=== PATIENT | female | born 1990 | race Two or more races ===

== ENCOUNTER 2016-09-26 08:41 | Emergency (ER) | payer MEDICAID, OTHER ==
[2016-09-26 08:49] VITALS: BMI 30.2
[2016-09-26 08:50] VITALS: TEMP 97.7
[2016-09-26 09:27] LABS: RBC URINE 1 /hpf (0-3); URINE BILIRUBIN NEGATIVE (NEGATIVE); URINE BLOOD NEGATIVE (NEGATIVE); URINE COLOR Yellow (YELLOW); URINE GLUCOSE (UA) NORMAL (Normal); URINE KETONE NEGATIVE (NEGATIVE); URINE LEUKOCYTE ESTERASE TRACE Leu/uL (Negative); URINE PROTEIN NEGATIVE (NEGATIVE); URINE UROBILINOGEN NORMAL mg/dL (0.2-1.0); WBC URINE 9 /hpf (0-5)
--- NOTE | 2016-09-26 09:51 | C.PDOC ---
History Of Present Illness 25 yr old female presents to the ER with complaints of dysuria for the past 4 days. Patient reports of bladder spasm and radiation of pain to bilateral lower back. Reports of fever and chills, states took 2 doses of penicillin 4 days ago and occasional nausea. Patient denies fever, chills, chest pain, SOB, vomiting, abdominal pain, diarrhea, incontinence, weakness or numbness. Patient also notes of foul smell discharge for the past 2 days. Patient states she is concerned for an STD due to unprotected sex. Patient denies rash. States she is pending insurance for OBGYN. DYSURIA X 4 DAYS. BLADDER SPASM, RADIATION B/L LOWER BACK. SUBJ FEVER, CHILLS. PS TOOK PCN X 2 DOSES 4 DAYS AGO. OCC NAUSEA. NO OTHER ASSOC SX. ALSO CO FOUL SMELLING DC X 2 DAYS. PS CONCERN FOR STD. +UNPROT SEX. NO RASH PENDING INSURANCE FOR OBGYN EXAM ABD NEG NO RASH, NO YELLOW DC. NEG MDM ADVISED SAFE SEX PRACTICES, REFERRED STD AND REG CLINIC Time Seen by Provider: 09/26/16 08:42 Chief Complaint (Nursing): Female Genitourinary History Per: Patient History/Exam Limitations: no limitations Onset/Duration Of Symptoms: Days (4) Associated Symptoms: Nausea Past Medical History Reviewed: Historical Data, Nursing Documentation, Vital Signs Vital Signs: Last Vital Signs Temp 97.7 F 09/26/16 08:49 Pulse 72 09/26/16 08:49 Resp 20 09/26/16 08:49 BP 104/70 09/26/16 08:49 Pulse Ox 100 09/26/16 10:35 Surgical History: Appendectomy Family History: States: No Known Family Hx - Social History Hx Alcohol Use: Yes Hx Substance Use: No - Immunization History Hx Tetanus Toxoid Vaccination: Yes Hx Influenza Vaccination: Yes Hx Pneumococcal Vaccination: No Review Of Systems Except As Marked, All Systems Reviewed And Found Negative. Constitutional: Negative for: Fever, Chills Cardiovascular: Negative for: Chest Pain Respiratory: Negative for: Shortness of Breath Gastrointestinal: Positive for: Nausea (occasional). Negative for: Vomiting, Abdominal Pain, Diarrhea Genitourinary: Positive for: Dysuria, Vaginal Discharge (Foul smelling discharge. ), Other ((+) Bladder spasm ). Negative for: Incontinence, Rash Musculoskeletal: Positive for: Back Pain (radiation to bilateral lower back ) Skin: Negative for: Rash Neurological: Negative for: Weakness, Numbness Physical Exam - Physical Exam Appears: Well, Non-toxic, No Acute Distress Skin: Warm, Dry, No Rash Head: Atraumatic, Normacephalic Oral Mucosa: Moist Chest: Symmetrical, No Tenderness Cardiovascular: Rhythm Regular, No Murmur Respiratory: Normal Breath Sounds, No Rales, No Rhonchi, No Stridor, No Wheezing Gastrointestinal/Abdominal: Normal Exam, Soft, No Tenderness, No Guarding, No Rebound Pelvic: Normal External Exam, No Vaginal Bleeding, No Vaginal Discharge Extremity: Normal ROM, No Swelling Neurological/Psych: Oriented x3, Normal Speech, Normal Motor, Normal Sensation ED Course And Treatment O2 Sat by Pulse Oximetry: 100 Medical Decision Making Medical Decision Making: PLAN: * HCG * Urinalysis * Macrobid PO * Pyridium PO * Zofran PO * Rocephin w/ Lidocaine Hydrochloride IM NOTE: Patient is advised to practice safe sex. Refereed to a STD clinic and regular clinic. Disposition Counseled Patient/Family Regarding: Studies Performed, Diagnosis, Need For Followup, Rx Given - Disposition Referrals: [facility] [Outside] [facility] [Outside] Disposition: HOME/ ROUTINE Disposition Time: 10:19 Condition: IMPROVED Prescriptions: Azithromycin [Zithromax] 1,000 mg PO ONCE #2 tab Metronidazole [Flagyl] 500 mg PO BID #14 tab Nitrofurantoin Macrocrystals [Macrobid] 1 cap PO BID #14 cap Ondansetron [Zofran Odt] 4 mg PO TID PRN #9 odt PRN Reason: Nausea/Vomiting Phenazopyridine HCl [Pyridium] 200 mg PO BID #6 tablet Instructions: Urinary Tract Infection in Women (ED), Vaginal Discharge (ED) - Clinical Impression Clinical Impression: Dysuria, Vaginal discharge - Scribe Statement The provider has reviewed the documentation as recorded by the Wai Aguilar Provider Attestation: All medical record entries made by the Simonibjessica were at my direction and personally dictated by me. I have reviewed the chart and agree that the record accurately reflects my personal performance of the history, physical exam, medical decision making, and the department course for this patient. I have also personally directed, reviewed, and agree with the discharge instructions and disposition.
[2016-09-26] MEDS ORDERED: cefTRIAXone (Rocephin) 250 mg Inj IM STA (10:21)
[2016-09-26 10:43] VITALS: BP 123/75; PULSE 77; RESP 16; O2SAT 98
[2016-09-26] MEDS ORDERED: cefTRIAXone 250 MG in Lidocaine Hydrochloride 1 ML IM ONE (11:00)
== END 2016-09-26 10:42 | disposition home or self-care (01) ==
LOC: C.ER 08:41
DX: N89.8 Other specified noninflammatory disorders of vagina (principal); R30.0 Dysuria
CPT/HCPCS: 81001; 84703; 87086; 96372; 99285; J0696

== ENCOUNTER 2017-08-23 16:14 | Emergency (ER) | payer OTHER ==
[2017-08-23 16:15] VITALS: BMI 30.2
[2017-08-23 16:24] VITALS: RESP 20
--- NOTE | 2017-08-23 16:38 | C.PDOC ---
History Of Present Illness 26-year-old female, presents to the emergency department with complaints of rlq/ pelvic pain since 1500. pain is LOCALIZED and CONSTANT. PS INITIAL ONSET L LOWER BACK NOW RESOLVED. +NV. LMP 08/08. PSH APPY EXAM MOD DIST NONTOXIC ABD +RLQ/PELVIC TEND MOD SOFT NO R/G REMAINDER NEG Time Seen by Provider: 08/23/17 16:29 Chief Complaint (Nursing): Abdominal Pain History Per: Patient History/Exam Limitations: no limitations Onset/Duration Of Symptoms: Days Current Symptoms Are (Timing): Still Present Severity: Moderate Past Medical History Reviewed: Historical Data, Nursing Documentation, Vital Signs Vital Signs: Last Vital Signs Temp 97.9 F 08/23/17 16:20 Pulse 79 08/23/17 16:20 Resp 20 08/23/17 16:20 BP 139/84 08/23/17 16:20 Pulse Ox 99 08/23/17 17:05 Surgical History: Appendectomy Family History: States: No Known Family Hx - Social History Hx Alcohol Use: Yes Hx Substance Use: No - Immunization History Hx Tetanus Toxoid Vaccination: Yes Hx Influenza Vaccination: Yes Hx Pneumococcal Vaccination: No Review Of Systems Constitutional: Negative for: Fever, Chills Cardiovascular: Negative for: Chest Pain Respiratory: Negative for: Shortness of Breath Gastrointestinal: Positive for: Nausea, Vomiting, Abdominal Pain Genitourinary: Negative for: Dysuria, Vaginal Discharge, Vaginal Bleeding, Pelvic Pain Musculoskeletal: Positive for: Back Pain Physical Exam - Physical Exam Appears: Non-toxic, No Acute Distress Skin: Normal Color, Warm, Dry, No Rash Head: Normacephalic Eye(s): bilateral: PERRL Nose: Normal Oral Mucosa: Moist Lips: Normal Appearing Neck: Normal ROM Cardiovascular: Rhythm Regular, No Murmur Respiratory: Normal Breath Sounds, No Accessory Muscle Use Gastrointestinal/Abdominal: Other (+RLQ/PELVIC TEND MOD SOFT NO R/G) Extremity: Normal ROM, No Deformity, No Swelling Neurological/Psych: Oriented x3, Normal Speech ED Course And Treatment - Laboratory Results Result Diagrams: 08/23/17 16:50 08/23/17 16:50 O2 Sat by Pulse Oximetry: 99 Progress - Re-Evaluation Re-evaluation Note: 08/23/17 18:13 IMPROVED NAD - Data Reviewed Data Reviewed: Lab, Diagnostic imaging, Old records Disposition Counseled Patient/Family Regarding: Studies Performed, Diagnosis, Need For Followup, Rx Given - Disposition Referrals: Bashri Moore MD [Staff Provider] - Disposition: HOME/ ROUTINE Disposition Time: 18:13 Condition: IMPROVED Prescriptions: Ibuprofen [Motrin] 600 mg PO Q6 #30 tab Ondansetron [Zofran Odt] 4 mg PO TID PRN #9 odt PRN Reason: Nausea/Vomiting oxyCODONE/Acetaminophen [Percocet 5/325 mg Tab] 1 ea PO QID #8 tab Tamsulosin [Flomax] 0.4 mg PO DAILY #14 cap Instructions: Kidney Stones (DC) Forms: [employer] (Peruvian), School Excuse - Clinical Impression Clinical Impression: Ureterolithiasis, Renal colic - Scribe Statement The provider has reviewed the documentation as recorded by the Scribe (Jose Valdez) All medical record entries made by the Scribe were at my direction and personally dictated by me. I have reviewed the chart and agree that the record accurately reflects my personal performance of the history, physical exam, medical decision making, and the department course for this patient. I have also personally directed, reviewed, and agree with the discharge instructions and disposition.
[2017-08-23] MEDS ORDERED: Sodium Chloride 0.9% 1,000 ML IV STA (16:40)
[2017-08-23] MEDS ORDERED: LIDOCAINE IV STA (16:40)
[2017-08-23] MEDS ORDERED: SODIUM CHLORIDE 0.9% IV STA (16:40)
[2017-08-23] MEDS ORDERED: Sodium Chloride 0.9% 1,000 ML ONE (16:51)
[2017-08-23 16:56] LABS: BASO % 0.4 % (0.0-2.0); EOS # 0.1 K/uL (0.0-0.7); EOS % 1.4 % (0.0-4.0); HEMOGLOBIN 13.7 g/dL (11.0-16.0); LYMPH # 2.6 K/uL (1.0-4.3); LYMPH % 26.4 % (20.0-40.0); MEAN CELL VOLUME 89.6 fL (81.0-99.0); MEAN CORPUSCULAR HEMOGLOBIN 30.9 pg (27.0-31.0); MEAN CORPUSCULAR HGB CONC 34.5 g/dL (33.0-37.0); MEAN PLATELET VOLUME 8.7 fL (7.2-11.7); MONO # 0.6 K/uL (0.0-0.8); NEUT # 6.5 K/uL (1.8-7.0); NEUT % 65.8 % (50.0-75.0); RBC 4.43 Mil/uL (3.80-5.20); RED CELL DISTRIBUTION WIDTH 13.2 % (11.5-14.5); WHITE BLOOD COUNT 9.9 K/uL (4.8-10.8)
[2017-08-23 17:17] LABS: SQUAMOUS EPITHIAL 9 /hpf (0-5); URINE BILIRUBIN NEGATIVE (NEGATIVE); URINE BLOOD NEGATIVE (NEGATIVE); URINE CLARITY Hazy (Clear); URINE COLOR Yellow (YELLOW); URINE GLUCOSE (UA) NORMAL (Normal); URINE LEUKOCYTE ESTERASE NEG Leu/uL (Negative); URINE PROTEIN 1+ mg/dL (NEGATIVE)
[2017-08-23 17:23] LABS: ALB/GLOB RATIO 1.2 (1.0-2.1); ALBUMIN 4.2 g/dL (3.5-5.0); ALT/SGPT 22 U/L (9-52); AST/SGOT 28 U/L (14-36); BLOOD UREA NITROGEN 13 mg/dL (7-17); CALCIUM 9.2 mg/dl (8.6-10.4); GFR AFRICAN-AMERICAN > 60; GFR NON-AFRICAN AMERICAN > 60; LIPASE 53 U/L (23-300)
--- NOTE | 2017-08-23 18:09 | US ---
HISTORY: R PELVIC PAIN RO TORSION COMPARISON: None available. TECHNIQUE: Grayscale, color Doppler and spectral evaluation of the pelvis performed transabdominally and transvaginally FINDINGS: UTERUS: Measures 7.0 x 3.6 x 4.7 cm. Anteverted. Normal in size and appearance. No fibroid or other mass lesion seen. ENDOMETRIUM: Measures 10 mm in diameter. Unremarkable. CERVIX: No cervical abnormality identified. RIGHT OVARY: Measures 3.7 x 2.4 x 3.8 cm. 2.1 x 1.7 x 2.1 cm and 1.5 x 1.4 x 1.0 cm follicles/cysts. No solid mass. Normal flow. LEFT OVARY: Measures 3.3 x 1.7 x 2.2 cm. Sub centimeter follicles. No solid mass. Normal flow. FREE FLUID: Small amount of free fluid adjacent to right ovary fluid noted. OTHER FINDINGS: None. IMPRESSION: Symmetric flow to both ovaries. Right ovarian follicles/cysts. Small amount of nonspecific fluid around the right ovary.
--- NOTE | 2017-08-23 18:12 | CT ---
PROCEDURE: CT Abdomen and Pelvis without intravenous contrast HISTORY: abd pain R COMPARISON: None. TECHNIQUE: Contiguous images were obtained from the domes of the diaphragms to the upper thighs without the administration of intravenous contrast. Oral contrast was not administered. Radiation dose: Total exam DLP = 683.3 mGy-cm. This CT exam was performed using one or more of the following dose reduction techniques: Automated exposure control, adjustment of the mA and/or kV according to patient size, and/or use of iterative reconstruction technique. FINDINGS: LOWER THORAX: Unremarkable. LIVER: Unremarkable. No gross lesion or ductal dilatation. GALLBLADDER AND BILE DUCTS: Unremarkable. PANCREAS: Unremarkable. No gross lesion or ductal dilatation. SPLEEN: Unremarkable. ADRENALS: Unremarkable. No mass. KIDNEYS AND URETERS: Right nephromegaly with perinephric stranding and mild hydroureteronephrosis. 3 mm distal right ureteral calculus. Unremarkable left kidney and ureter. No solid mass. VASCULATURE: Unremarkable. No aortic aneurysm. BOWEL: Unremarkable. No obstruction. No gross mural thickening. APPENDIX: Unremarkable. Normal appendix. PERITONEUM: Unremarkable. No free fluid. No free air. LYMPH NODES: Unremarkable. No enlarged lymph nodes. BLADDER: Unremarkable. REPRODUCTIVE: Unremarkable. BONES: No acute fracture. OTHER FINDINGS: None. IMPRESSION: 3 mm right distal ureteral calculus causing mild hydroureteronephrosis.
[2017-08-23 18:26] VITALS: BP 119/80; PULSE 73; TEMP 98.9; O2SAT 100
== END 2017-08-23 18:35 | disposition home or self-care (01) ==
LOC: C.ER 16:14
DX: N13.2 Hydronephrosis with renal and ureteral calculous obstruction (principal)
CPT/HCPCS: 74176; 76830; 76856; 80053; 81001; 83690; 85025; 96361; 96374; 96375; 99285; J1885; J2405; J7040